=== PATIENT | male | born 1955 | race Caucasian/White ===

== ENCOUNTER 2016-11-20 07:33 | Day surgery (SDC) | payer OTHER ==
[~2016-11-20] VITALS: Ht 177.8 cm; Wt 100.2 kg
[~2016-11-20 07:33] MED LIST: DIPROSONE 0.05%15 GM TP; FLEXERIL10 MG PO; FOLIC ACID1 MG PO; LIORESAL10 MG PO; LOTRIMIN AF24 GM TP; MOBIC7.5 MG PO; MORPHINE SULFAT15 MG PO; MS CONTIN,ORAMO15 M1 PO; NEURONTIN400 MG PO; VITAMIN D2000 UNIT PO
== END 2016-11-20 09:33 | disposition home or self-care (01) ==
LOC: PAIN 07:33 → SDC 08:15 → PAIN 08:15
PROC: 3E0S33Z Introduction of Anti-inflammatory into Epidural Space, Percutaneous Approach (ICD-10-PCS; principal; 2016-11-20)
DX: M47.26 Other spondylosis with radiculopathy, lumbar region (principal); M46.1 Sacroiliitis, not elsewhere classified; F41.9 Anxiety disorder, unspecified; Z79.891 Long term (current) use of opiate analgesic; M99.83 Other biomechanical lesions of lumbar region; Z87.891 Personal history of nicotine dependence; F17.290 Nicotine dependence, other tobacco product, uncomplicated; B19.20 Unspecified viral hepatitis C without hepatic coma; K74.60 Unspecified cirrhosis of liver; R73.03 Prediabetes; D69.6 Thrombocytopenia, unspecified
CPT/HCPCS: J1100; J2250; J3010

== ENCOUNTER 2016-12-09 07:25 | Day surgery (SDC) | payer OTHER ==
[~2016-12-09] VITALS: Ht 177.8 cm; Wt 100.1 kg
[~2016-12-09 07:25] MED LIST changes: +CENTRUM SILVER1 EAC1 PO; +VITAMIN D31000 UNI2 PO
== END 2016-12-09 08:48 | disposition home or self-care (01) ==
LOC: PAIN 07:25 → SDC 08:00 → PAIN 08:00
DX: M47.816 Spondylosis without myelopathy or radiculopathy, lumbar region (principal); M47.812 Spondylosis without myelopathy or radiculopathy, cervical region; F17.290 Nicotine dependence, other tobacco product, uncomplicated; Z79.891 Long term (current) use of opiate analgesic
CPT/HCPCS: J1030; J2250; J3010; S0020

== ENCOUNTER 2016-12-18 09:22 | Day surgery (SDC) | payer OTHER ==
[~2016-12-18] VITALS: Ht 177.8 cm; Wt 100.1 kg
== END 2016-12-18 11:01 | disposition home or self-care (01) ==
LOC: PAIN 09:22
DX: M47.26 Other spondylosis with radiculopathy, lumbar region (principal); M54.5 Low back pain; M48.06 Spinal stenosis, lumbar region; M46.1 Sacroiliitis, not elsewhere classified; M79.1 Myalgia; M48.02 Spinal stenosis, cervical region; K74.60 Unspecified cirrhosis of liver; R73.03 Prediabetes; F17.290 Nicotine dependence, other tobacco product, uncomplicated; Z79.891 Long term (current) use of opiate analgesic
CPT/HCPCS: J1030; J1100; J2250; J3010; S0020